=== PATIENT | female | born 1940 | race Caucasian/White ===

== ENCOUNTER 2024-02-07 11:19 | Inpatient (IN) | payer OTHER ==
[2024-02-07 11:54] LABS: BASO % 0.9 % (0-2.0); EOS % 0.3 % (0-4.5); HEMATOCRIT 46.5 % (32.4-45.2); HEMOGLOBIN 15.9 GM/dL (10.7-15.3); LYMPH % 19.6 % (8-40); MCHC 34.2 g/dl (32.0-36.0); MEAN CELL VOLUME 93.7 fl (80-96); MEAN PLT VOLUME 9.1 fl (7.5-11.1); MONO % 9.9 % (3.8-10.2); NEUT % 69.3 % (42.8-82.8); PLATELET COUNT 252 10^3/uL (134-434); RBC 4.96 M/mm3 (3.60-5.2); RDW 13.1 % (11.6-15.6)
[2024-02-07] MEDS: SODIUM CHLORIDE 0.9% 500 ML INFUS.BAG IV ONE (11:55)
[2024-02-07] MEDS ORDERED: ACETAMINOPHEN INJECTION 100 ML IVPB ONE (12:01)
[2024-02-07] MEDS ORDERED: ONDANSETRON 4 MG/2 ML VIAL ONE (12:01)
[2024-02-07 12:02] LABS: PROTHROMBIN TIME (PATIENT) 11.3 SEC (9.7-13.0)
[2024-02-07 12:05] LABS: ACTIVATED PTT 32.8 SECONDS (25.2-36.5)
[2024-02-07 12:10] LABS: POTASSIUM 4.8 mmol/L (3.5-5.1)
[2024-02-07 12:13] LABS: CALCIUM 9.7 mg/dL (8.5-10.1)
[2024-02-07 12:14] LABS: ALBUMIN 3.9 g/dl (3.4-5.0); BLOOD UREA NITROGEN 13.2 mg/dL (7-18); MAGNESIUM 2.2 mg/dL (1.8-2.4)
[2024-02-07] MEDS: ACETAMINOPHEN 1000 MG/100 ML BAG IVPB ONE (12:16)
[2024-02-07 12:17] LABS: CREATININE 0.8 mg/dL (0.55-1.3); PHOSPHOROUS 3.5 mg/dL (2.5-4.9)
[2024-02-07] MEDS: ONDANSETRON 4 MG/2 ML VIAL IVPUSH ONE (12:17)
[2024-02-07 12:18] LABS: TOT PROT 7.4 g/dl (6.4-8.2)
[2024-02-07 12:24] LABS: BILIRUBIN,TOTAL 0.9 mg/dL (0.2-1)
[2024-02-07 14:14] LABS: BLOOD UREA NITROGEN 14.5 mg/dL (7-18); CALCIUM 8.7 mg/dL (8.5-10.1); CREATININE 0.7 mg/dL (0.55-1.3); POTASSIUM 4.2 mmol/L (3.5-5.1)
[2024-02-07] MEDS: LACTATED RINGERS SOLUTION 1000 ML INFUS.BAG IV ONE (15:25)
[2024-02-07 15:38] LABS: CALCIUM 8.7 mg/dL (8.5-10.1)
[2024-02-07 15:39] LABS: BLOOD UREA NITROGEN 13.6 mg/dL (7-18)
[2024-02-07 15:42] LABS: CREATININE 0.6 mg/dL (0.55-1.3)
[2024-02-07] MEDS: APIXABAN 5 MG TABLET PO SCH (16:04)
[2024-02-07] MEDS: METOPROLOL TARTRATE 25 MG TABLET (FP) PO SCH (16:04)
[2024-02-07 16:36] VITALS: BMI 23.6
[2024-02-08 09:42] LABS: BASO % 0.7 % (0-2.0); EOS % 0.4 % (0-4.5); HEMATOCRIT 40.8 % (32.4-45.2); HEMOGLOBIN 13.6 GM/dL (10.7-15.3); LYMPH % 20.6 % (8-40); MCH 31.8 pg (25.7-33.7); MCHC 33.4 g/dl (32.0-36.0); MEAN PLT VOLUME 9.1 fl (7.5-11.1); NEUT % 68.3 % (42.8-82.8); PLATELET COUNT 206 10^3/uL (134-434); RBC 4.29 M/mm3 (3.60-5.2); RDW 13.2 % (11.6-15.6)
[2024-02-08 10:00] LABS: POTASSIUM 4.4 mmol/L (3.5-5.1)
[2024-02-08 10:10] LABS: ALBUMIN 3.2 g/dl (3.4-5.0); BILIRUBIN,TOTAL 0.9 mg/dL (0.2-1); BLOOD UREA NITROGEN 18.8 mg/dL (7-18); CALCIUM 8.7 mg/dL (8.5-10.1); MAGNESIUM 2.3 mg/dL (1.8-2.4)
[2024-02-08 10:12] LABS: CREATININE 0.8 mg/dL (0.55-1.3)
[2024-02-08] MEDS: ACETAMINOPHEN 325 MG TABLET (FP) PO PRN (18:43)
[2024-02-09] MEDS: morphine SULFATE 4 MG/ML VIAL IVPUSH ONE (00:55)
[2024-02-09 07:04] LABS: POTASSIUM 4.1 mmol/L (3.5-5.1)
[2024-02-09 07:10] LABS: CALCIUM 8.7 mg/dL (8.5-10.1)
[2024-02-09 07:11] LABS: BLOOD UREA NITROGEN 19.3 mg/dL (7-18)
[2024-02-09 07:14] LABS: CREATININE 0.6 mg/dL (0.55-1.3)
[2024-02-09 07:28] LABS: HEMATOCRIT 39.7 % (32.4-45.2); HEMOGLOBIN 13.6 GM/dL (10.7-15.3); MCH 32.2 pg (25.7-33.7); MCHC 34.2 g/dl (32.0-36.0); MEAN CELL VOLUME 94.3 fl (80-96); MEAN PLT VOLUME 9.2 fl (7.5-11.1); PLATELET COUNT 202 10^3/uL (134-434); RBC 4.21 M/mm3 (3.60-5.2); RDW 13.1 % (11.6-15.6); WHITE BLOOD COUNT 10.4 K/mm3 (4.0-10.0)
[2024-02-09] MEDS ORDERED: NITROGLYCERIN SUBLINGUAL 1/150 0.4 MG TAB SL PRN (08:39)
[2024-02-09] MEDS: hydrOXYzine PAMOATE 25 MG CAPSULE (FP) PO PRN (09:10)
[2024-02-09] MEDS: metoPROLOL SUCCINATE 25 MG TAB.SR.24H (FP) PO SCH (09:51)
[2024-02-10 06:57] LABS: HEMATOCRIT 36.9 % (32.4-45.2); HEMOGLOBIN 12.9 GM/dL (10.7-15.3); MCH 32.8 pg (25.7-33.7); MCHC 34.9 g/dl (32.0-36.0); PLATELET COUNT 208 10^3/uL (134-434); RBC 3.93 M/mm3 (3.60-5.2); RDW 13.6 % (11.6-15.6); WHITE BLOOD COUNT 7.3 K/mm3 (4.0-10.0)
[2024-02-10 07:04] LABS: POTASSIUM 4.3 mmol/L (3.5-5.1)
[2024-02-10 07:05] LABS: CALCIUM 8.6 mg/dL (8.5-10.1)
[2024-02-10 07:06] LABS: BLOOD UREA NITROGEN 19.4 mg/dL (7-18); MAGNESIUM 2.2 mg/dL (1.8-2.4)
[2024-02-10 07:09] LABS: CREATININE 0.7 mg/dL (0.55-1.3); PHOSPHOROUS 2.7 mg/dL (2.5-4.9)
[2024-02-10] MEDS ORDERED: REGADENOSON 0.4 MG/5 ML PRE-FILLED SYRINGE IVPUSH ONE (09:21)
[2024-02-10] MEDS: REGADENOSON 0.4 MG/5 ML PRE-FILLED SYRINGE IVPUSH ONE (10:40)
[2024-02-11 02:01] VITALS: RESP 18
[2024-02-11 09:00] VITALS: TEMP 98.2
[2024-02-11 15:18] VITALS: BP 107/64; PULSE 71
== END 2024-02-11 17:40 | disposition home or self-care (01) | DRG 310 ==
LOC: JER 11:19 → JERBED 14:04 → J4S 15:34
PROVIDERS: ADMIT Internal Medicine; ATTEND Internal Medicine
DX: I48.91 Unspecified atrial fibrillation (principal); I48.92 Unspecified atrial flutter; R07.9 Chest pain, unspecified; R00.2 Palpitations
CPT/HCPCS: 0241U-QW; 36415; 71045-TC-FY; 71275-TC; 78452-TC; 80048; 80053; 80061; 82308; 82728; 83036; 83735; 84100; 84436; 84439; 84443; 84484; 85025; 85027; 85610; 85651; 85730; 86140; 86850; 86900; 86901; 93005; 93010; 93017; 93306-TC; 99285-25; A9502; J0131; J2785; Q9967